=== PATIENT | female | born 2000 | race Hispanic/Latino ===

== ENCOUNTER 2024-05-03 17:54 | Emergency (ER) | payer OTHER ==
[2024-05-03 18:41] LABS: Absolute Lymphocytes (CBC) 1.7 K/uL (0.7-4.9); Absolute Monocytes 0.3 K/uL (0.1-1.3); Absolute Neutrophil 2.9 K/uL (1.8-8.0); Basophils % 0.6 % (0-1.3); Eosinophils % 0.9 % (0-4.4); Hematocrit 39.8 % (36.0-45.0); Hemoglobin 13.4 g/dL (12.0-15.0); Lymphocytes % 34.3 % (15.3-44.8); MCH 29.8 pg (27.0-35.0); MCHC 33.6 g/dL (32.0-36.0); MCV 88.6 fL (80-100); MPV 7.6 fL (7.6-11.3); Monocytes % 6.3 % (3.3-12.3); Neutrophils % 57.9 % (41.7-73.7); Nucleated Red Blood Cells % 0.2 % (0-0); Platelets 233 thou/uL (152-406); RBC Red Blood Cell Count 4.49 M/uL (3.86-4.86); Red Cell Distribution Width 12.5 % (12.1-15.2)
[2024-05-03 18:49] LABS: Specific Gravity 1.028 (1.005-1.030); Sqamous Epithelial <5 /HPF (None Seen); Urine Bacteria <20 /HPF (<20); Urine Bilirubin NEGATIVE (Negative); Urine Blood 3+ (Negative); Urine Clarity Extremely Turbid (Clear); Urine Color Light-Yellow (Yellow); Urine Culture Reflex Order NOT NEEDED; Urine Glucose NEGATIVE (Negative); Urine Ketones NEGATIVE (Negative); Urine Microscopic Reflex YN ORDER UMIC; Urine Mucus Slight /HPF (None Seen); Urine Nitrite NEGATIVE (Negative); Urine Protein NEGATIVE (Negative); Urine RBC <5 /HPF (None Seen); Urine Urobilinogen 1+ (Normal); Urine WBC <5 /HPF (<5); Urine pH 7.5 (5.0-7.0)
[2024-05-03 18:52] LABS: Specific Gravity 1.028 (1.005-1.030)
[2024-05-03 18:55] LABS: Anion Gap 6.7 mEq/L (5.0-15.0); BUN Blood Urea Nitrogen 11 mg/dL (7-18); Bicarbonate 27 mEq/L (21-32); Glomerular Filtration Rate 125 ml/min (=/>90); Glucose Level 88 mg/dL (74-106); HCG, Quantitative < 1 mIU/mL (1-3); Potassium 3.7 mEq/L (3.5-5.1); Sodium Level 140 mEq/L (136-145)
--- NOTE | 2024-05-03 19:27 | RAD REPORT ---
EXAMINATION: US FIRST TRIMESTER TRANSVAGINAL WITH DOPPLER CLINICAL INDICATION: Vaginal bleeding TECHNIQUE: Real-time obstetrical ultrasonography of the maternal pelvis and first trimester was performed transvaginally. Color and spectral Doppler evaluation of the ovaries was performed. COMPARISON: No prior exam. FINDINGS: The uterus measures 5 x 3 x 5 cm. The uterus is retroverted. An IUD is present within the endometrium . A gestational sac is not visualized within the endometrium. The endometrial stripe measures 4 mm. A f ibroid is not seen. Right ovary normal in size and echotexture Left ovary normal in size and echotexture Right and left adnexa unremarkable No significant free fluid IMPRESSION: If the patient is beta-hCG negative then this is an unremarkable exam. If the patient is beta-hCG positive then this could be a viable intrauterine in which the gestational sac not seen secondary to the early gestation. Other considerations would also include an and even ectopic .
--- NOTE | 2024-05-03 19:45 | EDPHYS ---
Physician Documentation [facility] Name: Priscila Chowdary Age: 23 yrs Sex: Female : 2000 Arrival Date: 05/03/2024 Time: 17:54 Bed 16 Private MD: ED Physician Harpreet Emery HPI: 05/03 18:14 This 23 yrs old Female presents to ER via Ambulatory with complaints of dr5 Vaginal Bleeding. 18:14 The patient presents with vaginal bleeding that is moderate, with clots, 1 tampon an dr5 hour. Onset: The symptoms/episode began/occurred acutely, this morning. The patient is sexually active, reportedly has a single partner, does not use protection during intercourse. The patient's method of control includes IUD. Patient is a 23-year-old female with no past medical history coming in with vaginal pain that started this morning. Patient reports she had her last child 8 months ago and has not had a menstrual cycle since. Patient reports mild lower abdominal cramping. Patient reports having an IUD. 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 - Infectious Disease History:: Denies. - Social history:: Smoking status: Patient denies any tobacco usage or history of. ROS: 18:14 Negative for urinary symptoms, dr5 18:14 Constitutional: as per hpi Eyes: Negative for injury, pain, redness, and discharge, 18:14 : Positive for vaginal bleeding, Exam: 18:14 Constitutional: This is a well developed, well nourished patient who is awake, alert, dr5 and in no acute distress. Head/Face: Normocephalic, atraumatic. Eyes: Pupils equal round and reactive to light, extra-ocular motions intact. Lids and lashes normal. Conjunctiva and sclera are non-icteric and not injected. Cornea within normal limits. Periorbital areas with no swelling, redness, or edema. Chest/axilla: Normal chest wall appearance and motion. Nontender with no deformity. No lesions are appreciated. Cardiovascular: Regular rate and rhythm with a normal S1 and S2. Normal PMI, no JVD. No pulse deficits. Respiratory: Lungs have equal breath sounds bilaterally, clear to auscultation. No rales, rhonchi or wheezes noted. No increased work of breathing, no retractions or nasal flaring. Back: No spinal tenderness. No costovertebral tenderness. Full range of motion. Skin: Warm, dry with normal turgor. Normal color with no rashes, no lesions, and no evidence of cellulitis. Neuro: Awake and alert, GCS 15, oriented to person, place, time, and situation. Cranial nerves II-XII grossly intact. Motor strength 5/5 in all extremities. Sensory grossly intact. Cerebellar exam normal. Normal gait. Vital Signs: 18:02 BP 112 / 75; Pulse 84; Resp 18; Temp 97.4; Pulse Ox 100% ; Weight 58.97 kg; Height 5 db ft. 2 in. ; 19:44 BP 105 / 73; Pulse 83; Resp 18; Pulse Ox 100% ; cp4 18:02 Body Mass Index 23.78 (58.97 kg, 157.48 cm) db MDM: 18:07 Medical Screening Exam initiated dr5 19:46 Differential diagnosis: menometrorrhagia, menorrhea, threatened Ab, inevitable Ab. Data dr5 reviewed: vital signs, nurses notes, lab test result(s), radiologic studies, ultrasound. Consideration of Admission/Observation Escalation of care including admission/observation considered. Consider escalation of her send patient has patient had ectopic .. Care significantly affected by the following Social Determinants of Health: Poor access to healthcare and/or lack of insurance, Poor access to transportation, Problems related to employment. Counseling: I had a detailed discussion with the patient and/or guardian regarding the historical points, exam findings, and any diagnostic results supporting the discharge/admit diagnosis, the presence of at least one elevated blood pressure reading (>120/80) during this emergency department visit, lab results, radiology results, the need for outpatient follow up, for definitive care, a family practitioner, an OB/Gyne specialist, to return to the emergency department if symptoms worsen or persist or if there are any questions or concerns that arise at home. ED course: Patient had blood work and ultrasound results and gave to patient to take to the [employer] doctor. All results went over with patient. No noted. Recommended patient follow-up with [facility] [employer] doctor in the next 1 to 2 days. All questions answered. Well-appearing on discharge. Vital signs stable. 05/03 18:06 Order name: Abo/rh Typing; Complete Time: 18:55 dr5 05/03 18:06 Order name: Basic Metabolic Panel; Complete Time: 18:56 dr5 05/03 18:06 Order name: CBC with Diff; Complete Time: 18:53 dr5 05/03 18:06 Order name: Test, Urine; Complete Time: 18:53 dr5 05/03 18:06 Order name: Quantitative Hcg; Complete Time: 18:56 dr5 05/03 18:19 Order name: Urinalysis w/ reflexes; Complete Time: 18:53 dr5 05/03 18:06 Order name: US Transvaginal Ob; Complete Time: 19:40 dr5 05/03 18:06 Order name: IV Saline Lock; Complete Time: 18:22 dr5 05/03 18:06 Order name: Labs collected and sent; Complete Time: 18:22 dr5 05/03 18:06 Order name: NPO; Complete Time: 18:14 dr5 Administered Medications: No medications were administered Disposition Summary: 05/03/24 19:45 Discharge Ordered Notes: Location: Home dr5 Condition: Stable dr5 Diagnosis - Abnormal uterine and vaginal bleeding, unspecified dr5 Followup: dr5 - With: Emergency Department - When: As needed - Reason: Worsening of condition Followup: dr5 - With: Private Physician - When: 1 - 2 days - Reason: Recheck today's complaints, Continuance of care, Re-evaluation by your physician Discharge Instructions: - Discharge Summary Sheet dr5 - Abnormal Uterine Bleeding dr5 Forms: - Medication Reconciliation Form dr5 - Patient Portal Instructions dr5 - Leadership Thank You Letter dr5 Signatures: Dispatcher [employer] Ricarda Wilson RN RN Magno Ramos, TRAIN ENGINEER-C TRAIN ENGINEER-Cdr5
--- NOTE | 2024-05-03 19:45 | ER ---
Nurse's Notes [facility] Name: Priscila Chowdary Age: 23 yrs Sex: Female : 2000 Arrival Date: 05/03/2024 Time: 17:54 Bed 16 Private MD: Diagnosis: Abnormal uterine and vaginal bleeding, unspecified Presentation: 05/03 18:03 Chief complaint: Chief complaint: Patient states: VAGINAL BLEEDING AND DIZZINESS STATES db SYMPTOMS STARTED ON TUESDAY. STATES THIS IS FIRST PERIOD SINCE HAVING BABY July. STATES HAS BACK CRAMPING AND CLOTS WITH BLEEDING. 18:03 Coronavirus screen: Client denies travel out of the [place] in the last 14 days. At this db time, the client does not indicate any symptoms associated with coronavirus-19. Ebola Screen: Patient negative for fever greater than or equal to 101.5 degrees Fahrenheit, and additional compatible Ebola Virus Disease symptoms Patient denies exposure to infectious person. Patient denies travel to an Ebola-affected area in the 21 days before illness onset. No symptoms or risks identified at this time. Initial Sepsis Screen: Does the patient meet any 2 criteria? Yes Does the patient have a suspected source of infection? No. Patient's initial sepsis screen is negative. Risk Assessment: Do you want to hurt yourself or someone else? Patient reports no desire to harm self or others. Onset of symptoms was May 03, 2024. 18:03 Method Of Arrival: Ambulatory db 18:03 Acuity: NARGIS 3 db Triage Assessment: 18:05 General: Appears in no apparent distress. Behavior is calm, cooperative. Pain: db Complains of pain in abdomen. Neuro: Level of Consciousness is awake, alert, obeys commands, Oriented to person, place, time, situation. Respiratory: Airway is patent Respiratory effort is even, unlabored, Respiratory pattern is regular, symmetrical. GI: Reports lower abdominal pain, cramping. : Reports vaginal bleeding that is with clots. 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 - Infectious Disease History:: Denies. - Social history:: Smoking status: Patient denies any tobacco usage or history of. Screenin:31 [facility] ED Fall Risk Assessment (Adult) History of falling in the last 3 months, ko1 including since admission No falls in past 3 months (0 pts) Confusion or Disorientation No (0 pts) Intoxicated or Sedated No (0 pts) Impaired Gait No (0 pts) Mobility Assist Device Used No (0 pt) Altered Elimination No (0 pt) Score/Fall Risk Level 0 - 2 = Low Risk Oriented to surroundings, Maintained a safe environment, Educated pt \T\ family on fall prevention, incl call for assistance when getting out of bed, Assessed \T\ reinforced patient's understanding of fall precautions, Hourly rounding (assess needs \T\ fall precautionary measures) done. Abuse screen: Denies threats or abuse. Denies injuries from another. Nutritional screening: No deficits noted. Tuberculosis screening: No symptoms or risk factors identified. Assessment: 18:37 General: Appears in no apparent distress. Behavior is calm, cooperative, appropriate ko1 for age. Pain: Denies pain. Neuro: No deficits noted. Cardiovascular: No deficits noted. Respiratory: No deficits noted. GI: No deficits noted. : Reports vaginal bleeding that is bright red, moderate flow. EENT: No deficits noted. Derm: No deficits noted. Musculoskeletal: No deficits noted. Vital Signs: 18:02 BP 112 / 75; Pulse 84; Resp 18; Temp 97.4; Pulse Ox 100% ; Weight 58.97 kg; Height 5 db ft. 2 in. ; 19:44 BP 105 / 73; Pulse 83; Resp 18; Pulse Ox 100% ; cp4 18:02 Body Mass Index 23.78 (58.97 kg, 157.48 cm) db ED Course: 17:56 Patient arrived in ED. im 17:57 Magno Portillo [facility]NP-C [facility] 17:57 Harpreet Emery MD is Attending Physician. dr5 18:05 Triage completed. db 18:05 Arm band placed on Patient placed in an exam room. db 18:14 Nuha Richter, JESSICA is Primary Nurse. ko1 18:22 Initial lab(s) drawn, by me, sent to lab. Inserted saline lock: 20 gauge in right bp antecubital area, using aseptic technique. Blood collected. Flushed with 10 mL NS. 18:31 Patient has correct armband on for positive identification. Placed in gown. Bed in low ko1 position. Call light in reach. Side rails up X2. Provided Education on: labs. Pulse ox on. NIBP on. Door closed. Noise minimized. Lights dimmed. Warm blanket given. Pillow given. Assisted to bathroom. 18:31 Urinalysis w/ reflexes Sent. ko1 18:31 No provider procedures requiring assistance completed. ko1 18:39 US Transvaginal Ob In Process Unspecified. EDMS 19:49 intact, bleeding controlled, No redness/swelling at site. Pressure dressing applied. cp4 Administered Medications: No medications were administered Medication: 18:31 VIS not applicable for this client. ko1 Outcome: 19:45 Discharge ordered by MD. dr5 19:49 Discharged to home ambulatory, cp4 19:49 Condition: stable 19:49 Discharge instructions given to patient, Instructed on discharge instructions, follow up and referral plans. Demonstrated understanding of instructions, follow-up care, 19:50 Patient left the ED. cp4 Signatures: Dispatcher [employer] EDMS Boo Amador RN RN bp Nuha Richter RN JESSICA ko1 Ricarda Neal, RN RN Lauren Ocampo Christina cp4 Magno Portillo, LEGAL NURSE CONSULTANT-C LEGAL NURSE CONSULTANT-Cdr5 Corrections: (The following items were deleted from the chart) 18:05 18:03 Chief complaint: db db
[2024-05-03 20:15] VITALS: TEMP 97.4; O2SAT 100
[2024-05-03 20:16] VITALS: BP 105/73
== END 2024-05-03 19:50 | disposition home or self-care (01) ==
LOC: ER 17:54
DX: N93.9 Abnormal uterine and vaginal bleeding, unspecified (principal)
CPT/HCPCS: 36415; 76817; 80048; 81001; 81025; 84702; 85025; 86900; 86901; 99284